=== PATIENT | male | born 1965 | race Caucasian/White ===

== ENCOUNTER 2022-12-30 05:40 | Emergency (ER) | payer MEDICAID ==
[2022-12-30] MEDS ORDERED: HYDROmorphone 1 MG/ML Syringe IM ONE (06:56)
[2022-12-30 07:11] LABS: CORONAVIRUS COVID-19 NAA POSITIVE (NEGATIVE); INFLUENZA A NAA NEGATIVE (NEGATIVE); INFLUENZA B NAA NEGATIVE (NEGATIVE); RESPIRATORY SYNCYTIAL VIR NAA NEGATIVE (NEGATIVE)
== END 2022-12-30 07:26 | disposition home or self-care (01) ==
LOC: JP.ED 05:40
DX: U07.1 COVID-19 (principal); I10 Essential (primary) hypertension; Z79.899 Other long term (current) drug therapy
CPT/HCPCS: 0241U; 99283